=== PATIENT | male | born 1950 | race Caucasian/White ===

== ENCOUNTER 2017-05-13 11:13 | Emergency (ER) | payer MEDICARE ==
[~2017-05-13] VITALS: Ht 167.6 cm; Wt 95.5 kg
[~2017-05-13 11:13] MED LIST: ASPI81CH6 CHEW; ATOR80TA45 PO; CLON0.5T PO; DILT30TA PO; GABA300C5 PO; ISOS30TA3 PO; LEVO125T4 PO; METF500T PO; METO25TA3 PO; MORP1TAB26 PO; NITR1SUB3 SL; OMEG12007 PO; TIZA4CAP3 PO; TOVI4TAB PO; VITA1000 PO; XARE20TA PO
[2017-05-13 11:19] VITALS: PULSE 66; RESP 18; TEMP 98.4; O2SAT 98
[2017-05-13 11:38] VITALS: O2SAT 94
[2017-05-13] MEDS ORDERED: DOCU1CAP66 (11:45)
[2017-05-13] MEDS ORDERED: OMEGCAP PO (11:45)
[2017-05-13] MEDS ORDERED: TAMS0.4C4 PO (11:45)
--- NOTE | 2017-05-13 11:45 | PD ---
HPI Chief Complaint: Abdominal Pain Time Seen by Provider: 11:44 Travel History International Travel<30 days: No Contact w/Intl Traveler<30days: No Traveled to known affect area: No History of Present Illness HPI 66 year old male patient presents to the emergency department for evaluation of right lower quadrant abdominal pain that radiates around to his back. He describes the pain as sharp and stabbing that comes with intensity that ebbs and flows. The peak intensity comes in waves and is rated at a 10/10. He denies any nausea, vomiting or diarrhea, however he started vomiting shortly after the assessment. He states the pain started at 4am when he was asleep. The pain was so severe it woke him from sleep. He denies eating anything out of the ordinary yesterday. He states he did drink one beer yesterday. He does not usually consume alcohol. He denies smoking or any drug use. Patient denies any fever or chills, chest pain or shortness of breath. Patient's only abdominal hx is hernia repair and bone graft from his left hip. He denies any difficulty urinating, dysuria or hematuria. The nurse reports the patient had difficulty initiating a stream of urine to collect a urinalysis. PFSH Past Medical History Hx Anticoagulant Therapy: Yes (XARELTO) Arthritis: Yes Asthma: Yes (SEASONAL) Autoimmune Disease: No Blood Disorders: No Anxiety: Yes Depression: Yes Heart Rhythm Problems: No Cancer: Yes (PROSTATE; BCC LEFT ARM; SQUAMOUS LT ARM) Cardiac Catheterization: Yes Cardiovascular Problems: Yes (2009) High Cholesterol: Yes Chemotherapy: No Chest Pain: Yes Congestive Heart Failure: No COPD: No Cerebrovascular Accident: No Diabetes: Yes Patient Takes Glucophage: Yes Diminished Hearing: No Endocrine: Yes Gastrointestinal Disorders: Yes GERD: Yes Glaucoma: No Genitourinary: Yes Hiatal Hernia: Yes Hypertension: Yes Immune Disorder: No Implanted Vascular Access Dvce: Yes Kidney Stones: No Musculoskeletal: Yes (CHRONIC BACK PAIN) Neurologic: No Psychiatric: Yes Reproductive: No Respiratory: Yes (SEASONAL ALLERGIES) Migraines: No Myocardial Infarction: Yes (DENIES) Radiation Therapy: Yes (2007) Renal Failure: Yes Seizures: No Sickle Cell Disease: No Sleep Apnea: Yes Thyroid Disease: Yes Ulcer: No Influenza Vaccination: Yes PNEUMOCCOCAL Vaccine (Year): 1 Past Surgical History Abdominal Surgery: Yes (ABD. HERNIA REPAIR) AICD: No Arteriovenous Shunt: No Body Medical Devices: HARDWARE LUMBAR, RIGHT CLAVICLE Insulin Pump: No Joint Replacement: Yes (REBECCA KNEE) Neurologic Surgery: Yes (LUMBAR LAMINECTOMY WITH FUSION) Oral Surgery: Yes (T&A AGE 13) Pacemaker: No Thoracic Surgery: No Tonsillectomy: Yes (AT 19 YEARS OLD) Other Surgery: Yes (PAIN PUMP IMPLANTED) Social History Alcohol Use: Yes (RARELY) Tobacco Use: No Substance Use: No Allergies-Medications (Allergen,Severity, Reaction): Coded Allergies: codeine (Verified Allergy, Severe, Itching, 05/13/17) procaine (Verified Allergy, Severe, FLUSHING, 05/13/17) gemfibrozil (Verified Allergy, Intermediate, DISORIENTED; CONFUSION, 05/13) Reported Meds & Prescriptions Reported Meds & Active Scripts Active [place] (Hydrocodone-Acetaminophen) 5 Mg-325 Mg Tab 1 Tab PO Q6H PRN Zofran Odt (Ondansetron Odt) 4 Mg Tab 4 Mg SL Q6HR PRN Reported Stool Softener (Docusate Sodium) 100 Mg Cap Tamsulosin (Tamsulosin HCl) 0.4 Mg Cap 0.4 Mg PO HS [place]-3 Fish Oil/Vitamin (Fish Oil-Cholecalciferol) 1,000-1,000 Mg Cap 1 Cap PO DAILY Xarelto (Rivaroxaban) 20 Mg Tab 20 Mg PO DAILY Nitroglycerin SL (Nitroglycerin) 0.4 Mg Subl 0.4 Mg SL DIRECTED PRN ONE TABLET UNDER THE TONGUE NEEDED FOR CHEST PAIN, MAY REPEAT EVERY FIVE MINUTES FOR A TOTAL OF 3 DOSES OR CALL 911 IF NO RELIEF Isosorbide Mononitrate ER (Isosorbide Mononitrate) 30 Mg Nga 30 Mg PO DAILY Vitamin D-1000 (Cholecalciferol) 1,000 Unit Tab 1,000 Units PO DAILY Tizanidine (Tizanidine HCl) 4 Mg Cap 4 Mg PO DIRECTED Clonazepam 0.5 Mg Tab 0.5 Mg PO BID Morphine ER (Morphine Sulfate) 60 Mg Tab 60 Mg PO BID Gabapentin 300 Mg Cap 300 Mg PO TID Levothyroxine (Levothyroxine Sodium) 125 Mcg Tab 125 Mcg PO DAILY Atorvastatin (Atorvastatin Calcium) 80 Mg Tab 80 Mg PO HS Diltiazem (Diltiazem HCl) 30 Mg Tab 30 Mg PO TID Metoprolol Tartrate 25 Mg Tab 25 Mg PO BID Metformin (Metformin HCl) 500 Mg Tab 500 Mg PO BIDPC With meals Review of Systems Except as stated in HPI: all other systems reviewed are Neg General / Constitutional: No: Fever Gastrointestinal: Positive: Abdominal Pain, No: Diarrhea Physical Exam Narrative GENERAL: Well-developed well-nourished obese 66-year-old male patient writhing in pain rolling around on the stretcher holding his right lower abdomen. SKIN: Focused skin assessment warm/dry. HEAD: Atraumatic. Normocephalic. EYES: Pupils equal and round. No scleral icterus. No injection or drainage. ENT: No nasal bleeding or discharge. Mucous membranes pink and moist. NECK: Trachea midline. No JVD. CARDIOVASCULAR: Irregularly regular rate and rhythm. No murmur appreciated. RESPIRATORY: No accessory muscle use. Clear to auscultation. Breath sounds equal bilaterally. GASTROINTESTINAL: Abdomen round, soft, diffusely tender with profound tenderness on the right lower quadrant radiating around to back. Hepatic and splenic margins not palpable. MUSCULOSKELETAL: No obvious deformities. No clubbing. No cyanosis. No edema. NEUROLOGICAL: Awake and alert. No obvious cranial nerve deficits. Motor grossly within normal limits. Normal speech. Data Data Last Documented VS Vital Signs Date Time Temp Pulse Resp B/P (MAP) Pulse Ox O2 Delivery O2 Flow Rate FiO2 05/13/17 11:59 50 21 118/77 (91) 93 Room Air 05/13/17 11:19 98.4 Orders Orders Complete Blood Count With Diff (05/13/17 11:36) Comprehensive Metabolic Panel (05/13/17 11:36) Lipase (05/13/17 11:36) Prothrombin Time / Inr (Pt) (05/13/17 11:36) Act Partial Throm Time (Ptt) (05/13/17 11:36) Urinalysis - C+S If Indicated (05/13/17 11:36) Ct Abd/Pel W Iv Contrast(Rout) (05/13/17 11:36) Iv Access Insert/Monitor (05/13/17 11:36) Ecg Monitoring (05/13/17 11:36) Oximetry (05/13/17 11:36) Electrocardiogram (05/13/17 11:36) Ondansetron Inj (Zofran Inj) (05/13/17 12:00) Sodium Chlorid 0.9% 500 Ml Inj (Ns 500 M (05/13/17 12:00) Morphine Inj (Morphine Inj) (05/13/17 12:00) Diet Npo (05/13/17 Lunch) Iohexol 350 Inj (Omnipaque 350 Inj) (05/13/17 13:10) Ed Discharge Order (05/13/17 14:15) Labs Laboratory Tests Test 05/13/17 12:00 05/13/17 12:45 White Blood Count 7.5 TH/MM3 Red Blood Count 4.27 MIL/MM3 Hemoglobin 13.4 GM/DL Hematocrit 39.8 % Mean Corpuscular Volume 93.3 FL Mean Corpuscular Hemoglobin 31.5 PG Mean Corpuscular Hemoglobin Concent 33.8 % Red Cell Distribution Width 15.5 % Platelet Count 195 TH/MM3 Mean Platelet Volume 8.9 FL Neutrophils (%) (Auto) 67.3 % Lymphocytes (%) (Auto) 20.6 % Monocytes (%) (Auto) 9.9 % Eosinophils (%) (Auto) 1.4 % Basophils (%) (Auto) 0.8 % Neutrophils # (Auto) 5.1 TH/MM3 Lymphocytes # (Auto) 1.5 TH/MM3 Monocytes # (Auto) 0.7 TH/MM3 Eosinophils # (Auto) 0.1 TH/MM3 Basophils # (Auto) 0.1 TH/MM3 CBC Comment DIFF FINAL Differential Comment Prothrombin Time 12.0 SEC Prothromb Time International Ratio 1.2 RATIO Activated Partial Thromboplast Time 28.0 SEC Blood Urea Nitrogen 20 MG/DL Creatinine 1.30 MG/DL Random Glucose 118 MG/DL Total Protein 7.3 GM/DL Albumin 3.4 GM/DL Calcium Level 9.1 MG/DL Alkaline Phosphatase 92 U/L Aspartate Amino Transf (AST/SGOT) 16 U/L Alanine Aminotransferase (ALT/SGPT) 17 U/L Total Bilirubin 0.5 MG/DL Sodium Level 141 MEQ/L Potassium Level 4.1 MEQ/L Chloride Level 106 MEQ/L Carbon Dioxide Level 26.9 MEQ/L Anion Gap 8 MEQ/L Estimat Glomerular Filtration Rate 55 ML/MIN Lipase 50 U/L Urine Color YELLOW Urine Turbidity HAZY Urine pH 5.5 Urine Specific [place] 1.028 Urine Protein 30 mg/dL Urine Glucose (UA) NEG mg/dL Urine Ketones NEG mg/dL Urine Occult Blood LARGE Urine Nitrite NEG Urine Bilirubin NEG Urine Urobilinogen LESS THAN 2.0 MG/DL Urine Leukocyte Esterase NEG Urine RBC /hpf Urine WBC 2 /hpf Urine Squamous Epithelial Cells <1 /hpf Urine Mucus FEW /lpf Urine Yeast (Budding) FEW Microscopic Urinalysis Comment CULT NOT INDICATED MDM Medical Decision Making Medical Screen Exam Complete: Yes Emergency Medical Condition: Yes Differential Diagnosis Differential diagnoses include but not limited to appendicitis, cholecystitis, gastritis, nephrolithiasis Narrative Course Patient placed on monitor and IV obtained. Blood work sent to the lab. BC, CMP , lipase, PT INR, UA ordered and pending. CT ordered and pending. 500 mL of normal saline bolus ordered, 4 mg IV Zofran ordered, 4 mg IV morphine ordered. Patient reports tremendous pain relief after the IV morphine. He is resting comfortably on the stretcher this time in no acute distress. Blood work is unremarkable. Abdominal CT shows 3 mm stone right UVJ nephrolithiasis with moderate obstruction Patient case discussed with my attending, Dr. Fraser. Patient will be discharged home with prescription for Zofran and [place] and instructions to continue to take Flomax as prescribed and to follow-up with Dr. Bledsoe, his urologist. Patient instructed to take [place] with caution due to the fact that he is already on long-term pain management. Patient cautioned about drowsiness associated with narcotic pain management. Patient on board with plan of care, states he will follow-up with his urologist or return to the emergency Department with any worsening condition. Patient pain free at this time and ready for discharge. Diagnosis Primary Impression: Nephrolithiasis Referrals: Moe Bledsoe MD Patient Instructions: General Instructions, Kidney Stones (GEN) Additional Instructions: Please return to emergency department if your symptoms return or worsen. Follow up with your primary care provider. Continue to take Flomax as prescribed. Take [place] as directed as needed for pain management. Take Zofran as directed as needed for nausea. Stay hydrated. Follow-up with Dr. Bledsoe, urologist. Med/Other Pt SpecificInfo: Prescription(s) given Scripts Hydrocodone-Acetaminophen ([place]) 5 Mg-325 Mg Tab 1 TAB PO Q6H Y for PAIN, #15 TAB 0 Refills Prov: Ash Fraser MD 05/13/17 Ondansetron Odt (Zofran Odt) 4 Mg Tab 4 MG SL Q6HR Y for Nausea/Vomiting, #30 TAB 0 Refills Prov: Shaina Hernandez 05/13/17 Disposition: 01 DISCHARGE HOME Condition: Stable Shaina Hernandez May 13, 2017 11:45
[2017-05-13 11:59] VITALS: BP 118/77; PULSE 50; RESP 21; O2SAT 93
[2017-05-13] MEDS ORDERED: ONDANSETRON HCL 4 MG/2 ML VIAL IV PUSH ONE (12:00)
[2017-05-13] MEDS ORDERED: MORPHINE SULFATE 2 MG/ML INJ IV PUSH ONE (12:00)
[2017-05-13] MEDS ORDERED: SODIUM CHLORID 0.9% 500 ML INJ 500 ML IV ONE (12:00)
[2017-05-13 12:17] LABS: AUTOMATED NEUTROPHIL # 5.1 TH/MM3 (1.8-7.7); BASOPHIL # 0.1 TH/MM3 (0-0.2); BASOPHIL % 0.8 % (0.0-2.0); EOSINOPHIL # 0.1 TH/MM3 (0-0.4); EOSINOPHIL % 1.4 % (0.0-4.0); HEMATOCRIT 39.8 % (39.0-51.0); HEMOGLOBIN 13.4 GM/DL (13.0-17.0); LYMPH % 20.6 % (9.0-44.0); LYMPHOCYTE # 1.5 TH/MM3 (1.0-4.8); MEAN CELL VOLUME 93.3 FL (80.0-100.0); MEAN CORPUSCULAR HEMOGLOBIN 31.5 PG (27.0-34.0); MEAN CORPUSCULAR HGB CONC 33.8 % (32.0-36.0); MEAN PLATELET VOLUME 8.9 FL (7.0-11.0); MONO % 9.9 % (0.0-8.0); MONOCYTE # 0.7 TH/MM3 (0-0.9); NEUT % 67.3 % (16.0-70.0); PLATELET COUNT 195 TH/MM3 (150-450); RED BLOOD COUNT 4.27 MIL/MM3 (4.50-5.90); RED CELL DISTRIBUTION WIDTH 15.5 % (11.6-17.2); WHITE BLOOD COUNT 7.5 TH/MM3 (4.0-11.0)
[2017-05-13 12:28] LABS: INTERNATIONAL NORMALIZED RATIO 1.2 RATIO
[2017-05-13 12:31] LABS: ALBUMIN 3.4 GM/DL (3.4-5.0); ALT (GPT) 17 U/L (12-78); AST (GOT) 16 U/L (15-37); BICARBONATE 26.9 MEQ/L (21.0-32.0); BLOOD UREA NITROGEN 20 MG/DL (7-18); CALCIUM 9.1 MG/DL (8.5-10.1); CHLORIDE 106 MEQ/L (98-107); GLOMERULAR FILTRATION RATE 55 ML/MIN (>89); GLUCOSE,RANDOM 118 MG/DL (74-106); LIPASE 50 U/L (73-393); SODIUM (NA) 141 MEQ/L (136-145)
[2017-05-13 12:33] LABS: ALKALINE PHOSPHATASE 92 U/L (45-117); TOTAL BILIRUBIN ADULT 0.5 MG/DL (0.2-1.0); TOTAL PROTEIN 7.3 GM/DL (6.4-8.2)
[2017-05-13] MEDS ORDERED: IOHEXOL 350 MG/ML 10 ML VIAL (for RAD DIAG) IVCONTRAST ONE (13:10)
[2017-05-13 13:16] LABS: BILIRUBIN, URINE NEG (NEG); BLOOD, URINE LARGE (NEG); GLUCOSE,URINE NEG (NEG); KETONE, URINE NEG (NEG); MUCUS URINE FEW /lpf (OCC); NITRITE,URINE NEG (NEG); PH, URINE 5.5 (5.0-8.5); SQUAMOUS EPITHELIAL CELL URINE <1 /hpf (0-5); URINE COLOR YELLOW (YELLW/STRAW); URINE LEUKOCYTE ESTERASE NEG (NEG)
--- NOTE | 2017-05-13 13:22 | RADRPT ---
EXAM DATE/TIME: 05/13/2017 12:52 [place] COMPARISON: No previous studies available for comparison. INDICATIONS : Right side abdominal pain. IV CONTRAST: 95 cc Omnipaque 300 (iohexol) IV ORAL CONTRAST: No oral contrast ingested. RADIATION DOSE: 14.97 CTDIvol (mGy) MEDICAL HISTORY : Hernia, hiatal. Carcinoma, prostate. Cardiovascular disease. Diabetes mellitus type 2. Hypertension. SURGICAL HISTORY : None. ENCOUNTER: Initial ACUITY: 3 days PAIN SCALE: 8/10 LOCATION: Right abdomen. TECHNIQUE: Volumetric scanning of the abdomen and pelvis was performed. Using automated exposure control and ad justment of the mA and/or kV according to patient size, radiation dose was kept as low as reasonably achievable to obtain optimal diagnostic quality images. DICOM format image data is available electro nically for review and comparison. FINDINGS: Lung base is are clear.: ::: The colon Sits between between liver and abdominal wall. Gallbladder is unremarkable Spleen and pancreas appear normal Adrenals adrenal glands are unremarkable Left kidney is normal There is penetrating about the right kidney the dilated ureter extending down to the right ureteroves ical junction where the 3 mm stone is evident. As her previous prostate and recent therapy is noted Review of bone windows reveals degenerative changes in the lumbar spine with transpedicular fixation lower lumbar spine. Pelvic contents are unremarkable. CONCLUSION: 1. 3 mm stone right ureterovesical junction with moderate obstruction. 2. Transpedicular fixation lower lumbar spine. Patrice Mccann MD FACR on May 13, 2017 at 13:18 Board Certified Radiologist. This report was verified electronically.
[2017-05-13] MEDS ORDERED: ZOFR4TAB3 SL (13:30)
--- NOTE | 2017-05-13 13:31 | PD ---
Data Data Last Documented VS Vital Signs Date Time Temp Pulse Resp B/P (MAP) Pulse Ox O2 Delivery O2 Flow Rate FiO2 05/13/17 14:49 05/13/17 11:59 50 21 93 Room Air 05/13/17 11:19 98.4 Orders Orders Complete Blood Count With Diff (05/13/17 11:36) Comprehensive Metabolic Panel (05/13/17 11:36) Lipase (05/13/17 11:36) Prothrombin Time / Inr (Pt) (05/13/17 11:36) Act Partial Throm Time (Ptt) (05/13/17 11:36) Urinalysis - C+S If Indicated (05/13/17 11:36) Ct Abd/Pel W Iv Contrast(Rout) (05/13/17 11:36) Iv Access Insert/Monitor (05/13/17 11:36) Ecg Monitoring (05/13/17 11:36) Oximetry (05/13/17 11:36) Electrocardiogram (05/13/17 11:36) Ondansetron Inj (Zofran Inj) (05/13/17 12:00) Sodium Chlorid 0.9% 500 Ml Inj (Ns 500 M (05/13/17 12:00) Morphine Inj (Morphine Inj) (05/13/17 12:00) Diet Npo (05/13/17 Lunch) Iohexol 350 Inj (Omnipaque 350 Inj) (05/13/17 13:10) Ed Discharge Order (05/13/17 14:15) Labs Laboratory Tests Test 05/13/17 12:00 05/13/17 12:45 White Blood Count 7.5 TH/MM3 Red Blood Count 4.27 MIL/MM3 Hemoglobin 13.4 GM/DL Hematocrit 39.8 % Mean Corpuscular Volume 93.3 FL Mean Corpuscular Hemoglobin 31.5 PG Mean Corpuscular Hemoglobin Concent 33.8 % Red Cell Distribution Width 15.5 % Platelet Count 195 TH/MM3 Mean Platelet Volume 8.9 FL Neutrophils (%) (Auto) 67.3 % Lymphocytes (%) (Auto) 20.6 % Monocytes (%) (Auto) 9.9 % Eosinophils (%) (Auto) 1.4 % Basophils (%) (Auto) 0.8 % Neutrophils # (Auto) 5.1 TH/MM3 Lymphocytes # (Auto) 1.5 TH/MM3 Monocytes # (Auto) 0.7 TH/MM3 Eosinophils # (Auto) 0.1 TH/MM3 Basophils # (Auto) 0.1 TH/MM3 CBC Comment DIFF FINAL Differential Comment Prothrombin Time 12.0 SEC Prothromb Time International Ratio 1.2 RATIO Activated Partial Thromboplast Time 28.0 SEC Blood Urea Nitrogen 20 MG/DL Creatinine 1.30 MG/DL Random Glucose 118 MG/DL Total Protein 7.3 GM/DL Albumin 3.4 GM/DL Calcium Level 9.1 MG/DL Alkaline Phosphatase 92 U/L Aspartate Amino Transf (AST/SGOT) 16 U/L Alanine Aminotransferase (ALT/SGPT) 17 U/L Total Bilirubin 0.5 MG/DL Sodium Level 141 MEQ/L Potassium Level 4.1 MEQ/L Chloride Level 106 MEQ/L Carbon Dioxide Level 26.9 MEQ/L Anion Gap 8 MEQ/L Estimat Glomerular Filtration Rate 55 ML/MIN Lipase 50 U/L Urine Color YELLOW Urine Turbidity HAZY Urine pH 5.5 Urine Specific [place] 1.028 Urine Protein 30 mg/dL Urine Glucose (UA) NEG mg/dL Urine Ketones NEG mg/dL Urine Occult Blood LARGE Urine Nitrite NEG Urine Bilirubin NEG Urine Urobilinogen LESS THAN 2.0 MG/DL Urine Leukocyte Esterase NEG Urine RBC /hpf Urine WBC 2 /hpf Urine Squamous Epithelial Cells <1 /hpf Urine Mucus FEW /lpf Urine Yeast (Budding) FEW Microscopic Urinalysis Comment CULT NOT INDICATED MDM Supervised Visit with RENEE: Yes Narrative Course I, Dr. Fraser, have reviewed the advance practice practitioner's documentation and am in agreement, met with the patient face to face, made the diagnosis, and the medical decision making was done by me. *My assessment and Findings: Patient seen and examined by me in addition to Shaina Hernandez patient states more comfortable now, CAT scan does reveal an obstructing 3 mm kidney stone at the right UVJ consistent with his symptoms. Patient feels comfortable enough to go home, no urinary tract infection, kidney function normal, he feels well enough to follow-up with his urologist. Discussed the stone is obstructing and if it hasn't passed in a week or so needs to return to the emergency department, he is already on Flomax, pain control discussed with him as well. Diagnosis Primary Impression: Nephrolithiasis Scripts Hydrocodone-Acetaminophen ([place]) 5 Mg-325 Mg Tab 1 TAB PO Q6H Y for PAIN, #15 TAB 0 Refills Prov: Ash Fraser MD 05/13/17 Ondansetron Odt (Zofran Odt) 4 Mg Tab 4 MG SL Q6HR Y for Nausea/Vomiting, #30 TAB 0 Refills Prov: Shaina Hernandez 05/13/17 Disposition: 01 DISCHARGE HOME Condition: Stable Ash Fraser MD May 13, 2017 13:31
[2017-05-13] MEDS ORDERED: NORC5TAB PO (13:33)
--- NOTE | 2017-05-14 17:19 | EKG ---
Date Performed: 05/13/2017 Time Performed: 11:45:56 PTAGE: 66 years EKG: PROBABLE SINUS BRADYCARDIA BASELINE ARTIFACT PRECLUDES ANY FURTHER INTERPRETATION CLINICAL CORRELATION AND REPEAT EKG IS ADVISED ABNORMAL RHYTHM ECG Compared to PREVIOUS TRACING , the patient is now profoundly Bradycardic. PREVIOUS TRACIN 1 22.42 DOCTOR: Ingrid Mejia Interpretating Date/Time 05/14/2017 17:18:47
== END 2017-05-13 14:51 | disposition home or self-care (01) ==
LOC: NEPC 11:13
DX: N20.0 Calculus of kidney (principal); J45.909 Unspecified asthma, uncomplicated; E11.9 Type 2 diabetes mellitus without complications; I10 Essential (primary) hypertension; R94.31 Abnormal electrocardiogram [ECG] [EKG]; Z79.01 Long term (current) use of anticoagulants
CPT/HCPCS: 74177; 80053; 81001; 83690; 85025; 85610; 85730; 93005; 96361; 96374; 96375; 99285; J2270; J2405; J7040; Q9967